=== PATIENT | female | born 1940 | race Caucasian/White ===

== ENCOUNTER 2017-10-23 20:25 | Emergency (ER) | payer MEDICARE ==
[2017-10-23 20:30] VITALS: TEMP 97.1
[2017-10-23] MEDS ORDERED: ONDANSETRON 4 MG/2 ML VIAL IVP STA (20:37)
[2017-10-23] MEDS ORDERED: LABETALOL 5 MG/ML VIAL MDV IVP STA ×2 (20:37→20:48)
[2017-10-23] MEDS ORDERED: SODIUM CHLORIDE 0.9% 1,000 ML IV STA (20:48)
[2017-10-23 21:00] VITALS: RESP 16
[2017-10-23] MEDS ORDERED: tPA (Alteplase) PER PHARMACY 1 EACH MISC MISCELLANE PRN (21:08)
--- NOTE | 2017-10-23 21:09 | CT ---
EXAMINATION TYPE: CT brain wo con for TPA DATE OF EXAM: 10/23/2017 COMPARISON: NONE INDICATION: R/O Stroke DLP: 1074.70 mGycm, Automated exposure control for dose reduction was used. CONTRAST: None CT of the brain is performed utilizing 3 mm thick sections through the posterior fossa and 3 mm thick sections through the remaining calvarium. Study is performed within 24 hours of arrival to the hosp [facility]. No abnormal hyperdensity is present to suggest an acute intracranial hemorrhage. No mass lesion is evident. No acute infarcts are evident. There is mild periventricular white matter hypodensity, likely on the basis of chronic white matter ischemic changes. Ventricles and sulci are appropriate for the patient age. Paranasal sinuses and mastoid air cells within the [id number] are clear. IMPRESSIONS: 1. Periventricular chronic appearing white matter ischemic changes. 2. No acute intracranial process radiographically apparent.
[2017-10-23] MEDS ORDERED: ALTEPLASE BOLUS 7 MG in EMPTY SYRINGE 1 SYR IV STA (21:10)
[2017-10-23] MEDS ORDERED: ALTEPLASE 63 MG in EMPTY BAG 1 BAG IV STA (21:10)
[2017-10-23 21:13] LABS: Basophils # (A) 0.1 k/uL (0-0.2); Basophils % (A) 1 %; Eosinophils # (A) 0.2 k/uL (0-0.7); Eosinophils % (A) 3 %; HCT 37.3 % (34.0-46.0); HGB 12.4 gm/dL (11.4-16.0); Lymphocytes # (A) 1.7 k/uL (1.0-4.8); Lymphocytes % (A) 21 %; MCH 29.2 pg (25.0-35.0); MCHC 33.2 g/dL (31.0-37.0); MCV 88.1 fL (80.0-100.0); Mean Platelet Volume 7.1; Monocytes # (A) 0.4 k/uL (0-1.0); Monocytes % (A) 5 %; Neutrophils # (A) 5.3 k/uL (1.3-7.7); Neutrophils % (A) 68 %; Platelet Count 264 k/uL (150-450); RBC 4.23 m/uL (3.80-5.40); WBC 7.8 k/uL (3.8-10.6)
[2017-10-23 21:16] LABS: Albumin 3.9 g/dL (3.5-5.0); Calcium 9.6 mg/dL (8.4-10.2); Potassium 5.3 mmol/L (3.5-5.1); Total Bilirubin 0.7 mg/dL (0.2-1.3); Total Protein 6.6 g/dL (6.3-8.2)
[2017-10-23 21:17] LABS: Creatine Kinase 62 U/L (30-135)
[2017-10-23 21:23] LABS: Partial Thromboplastin Time 18.4 sec (22.0-30.0)
--- NOTE | 2017-10-23 21:23 | ED ---
General Adult HPI - General Chief complaint: Altered Mental Status Stated complaint: stroke Time Seen by Provider: 10/23/17 20:39 Source: EMS, RN notes reviewed, old records reviewed Mode of arrival: EMS Limitations: altered mental status - History of Present Illness Initial comments: This is a 76-year-old female the ER for evaluation, positive history of high blood pressure high cholesterol, patient coming in with sudden onset of altered mental state. Patient was playing cards with family earlier today around 8:00. She became unresponsive not asking questions responding, noted to have right- sided weakness. Patient poor strain secondary to critical condition history obtained from patient's family, EMS. - Related Data Allergies Allergy/AdvReac Type Severity Reaction Status Date / Time No Known Allergies Allergy Verified 10/23/17 20:30 Review of Systems ROS Statement: Those systems with pertinent positive or pertinent negative responses have been documented in the HPI. ROS Other: All systems not noted in ROS Statement are negative. Past Medical History Past Medical History: Diabetes Mellitus, Hypertension History of Any Multi-Drug Resistant Organisms: None Reported Past Surgical History: No Surgical Hx Reported Past Psychological History: No Psychological Hx Reported General Exam - General Exam Comments Initial Comments: NIH 7, Right Facial Droop, Right Hemiparesis, Dec Mentation - Limitations: altered mental status General appearance: alert, in no apparent distress Head exam: Present: atraumatic, normocephalic, normal inspection Eye exam: Present: normal appearance, PERRL, EOMI. Absent: scleral icterus, conjunctival injection, periorbital swelling ENT exam: Present: normal exam, mucous membranes moist Neck exam: Present: normal inspection. Absent: tenderness, meningismus, lymphadenopathy Respiratory exam: Present: normal lung sounds bilaterally. Absent: respiratory distress, wheezes, rales, rhonchi, stridor Cardiovascular Exam: Present: regular rate, normal rhythm, normal heart sounds. Absent: systolic murmur, diastolic murmur, rubs, gallop, clicks GI/Abdominal exam: Present: soft, normal bowel sounds. Absent: distended, tenderness, guarding, rebound, rigid Extremities exam: Present: normal inspection, full ROM, normal capillary refill. Absent: tenderness, pedal edema, joint swelling, calf tenderness Back exam: Present: normal inspection Neurological exam: Present: alert, oriented X3, CN II-XII intact Psychiatric exam: Present: normal affect, normal mood Skin exam: Present: warm, dry, intact, normal color. Absent: rash Course Vital Signs 10/23/17 10/23/17 10/23/17 20:26 20:41 20:56 Temperature 97.1 F L Pulse Rate 85 90 72 Respiratory 20 18 16 Rate Blood Pressure 206/94 218/100 152/87 O2 Sat by Pulse 100 91 L 100 Oximetry 10/23/17 10/23/17 10/23/17 21:11 21:17 21:30 Temperature Pulse Rate 80 69 84 Respiratory 16 16 16 Rate Blood Pressure 172/71 163/74 167/93 O2 Sat by Pulse 86 L 96 97 Oximetry - Reevaluation(s) Reevaluation #1: 10/23/17 20:21 Code stroke page outpatient emergency room arrival Reevaluation #2: 10/23/17 21:21 Spoke with family at length regarding was incontinent TPA, decision made to go through with giving TPA medication Reevaluation #3: 10/23/17 21:21 Dr. Shelton from neural intervention is spoken with, agree with decision and plan. Reevaluation #4: 10/23/17 21:21 Blood pressure is well-controlled currently Reevaluation #5: 10/23/17 21:21 Patient's becoming more somnolent remains a positive gag reflex, pulse ox 97/98% 10/23/17 21:32 Patient currently with decerebrate posturing, secondary to respiratory effort, patient needs to be intubated Procedures - Intubation Time Out Performed: Yes Sedative: Versed Paralytic: Succinylcholine Laryngoscope: Ton ET Tube Size: 7.5 ET Tube Uncuffed: No Tube Secured Location: teeth Tube Placement Confirmation: visualized tube passing through cords, equal breath sounds bilaterally, no breath sounds over epigastrium, confirmation by capnometry Patient Tolerated Procedure: well Intubation Complications: none Medical Decision Making - Medical Decision Making 76 female the ER was significant neurological complaint symptoms, positive CVA. Patient is placed currently on life-support secondary to respiratory effort and low oxygen, patient will be transferred to [facility] for further evaluation and management by neurological neuro intervention - Lab Data Result diagrams: 10/23/17 20:59 10/23/17 20:59 Lab Results 10/23/17 10/23/17 10/23/17 Range/Units 20:59 20:59 20:59 WBC 7.8 (3.8-10.6) k/uL RBC 4.23 (3.80-5.40) m/uL Hgb 12.4 (11.4-16.0) gm/dL Hct 37.3 (34.0-46.0) % MCV 88.1 (80.0-100.0) fL MCH 29.2 (25.0-35.0) pg MCHC 33.2 (31.0-37.0) g/dL RDW 14.0 (11.5-15.5) % Plt Count 264 (150-450) k/uL Neutrophils % 68 % Lymphocytes % 21 % Monocytes % 5 % Eosinophils % 3 % Basophils % 1 % Neutrophils # 5.3 (1.3-7.7) k/uL Lymphocytes # 1.7 (1.0-4.8) k/uL Monocytes # 0.4 (0-1.0) k/uL Eosinophils # 0.2 (0-0.7) k/uL Basophils # 0.1 (0-0.2) k/uL PT (9.0-12.0) sec INR (<1.2) APTT (22.0-30.0) sec Sodium 138 (137-145) mmol/L Potassium 5.3 H (3.5-5.1) mmol/L Chloride 103 (98-107) mmol/L Carbon Dioxide 21 L (22-30) mmol/L Anion Gap 14 mmol/L BUN 30 H (7-17) mg/dL Creatinine 1.60 H (0.52-1.04) mg/dL Est GFR (CKD-EPI)AfAm 36 (>60 ml/min/1.73 sqM) Est GFR (CKD-EPI)NonAf 31 (>60 ml/min/1.73 sqM) Glucose 205 H (74-99) mg/dL Calcium 9.6 (8.4-10.2) mg/dL Total Bilirubin 0.7 (0.2-1.3) mg/dL AST 22 (14-36) U/L ALT 31 (9-52) U/L Alkaline Phosphatase 53 (38-126) U/L Total Creatine Kinase 62 (30-135) U/L CK-MB (CK-2) 1.2 (0.0-2.4) ng/mL CK-MB (CK-2) Rel Index 1.9 Troponin I <0.012 (0.000-0.034) ng/mL Total Protein 6.6 (6.3-8.2) g/dL Albumin 3.9 (3.5-5.0) g/dL 10/23/17 Range/Units 20:59 WBC (3.8-10.6) k/uL RBC (3.80-5.40) m/uL Hgb (11.4-16.0) gm/dL Hct (34.0-46.0) % MCV (80.0-100.0) fL MCH (25.0-35.0) pg MCHC (31.0-37.0) g/dL RDW (11.5-15.5) % Plt Count (150-450) k/uL Neutrophils % % Lymphocytes % % Monocytes % % Eosinophils % % Basophils % % Neutrophils # (1.3-7.7) k/uL Lymphocytes # (1.0-4.8) k/uL Monocytes # (0-1.0) k/uL Eosinophils # (0-0.7) k/uL Basophils # (0-0.2) k/uL PT 10.0 (9.0-12.0) sec INR 1.0 (<1.2) APTT 18.4 L (22.0-30.0) sec Sodium (137-145) mmol/L Potassium (3.5-5.1) mmol/L Chloride (98-107) mmol/L Carbon Dioxide (22-30) mmol/L Anion Gap mmol/L BUN (7-17) mg/dL Creatinine (0.52-1.04) mg/dL Est GFR (CKD-EPI)AfAm (>60 ml/min/1.73 sqM) Est GFR (CKD-EPI)NonAf (>60 ml/min/1.73 sqM) Glucose (74-99) mg/dL Calcium (8.4-10.2) mg/dL Total Bilirubin (0.2-1.3) mg/dL AST (14-36) U/L ALT (9-52) U/L Alkaline Phosphatase (38-126) U/L Total Creatine Kinase (30-135) U/L CK-MB (CK-2) (0.0-2.4) ng/mL CK-MB (CK-2) Rel Index Troponin I (0.000-0.034) ng/mL Total Protein (6.3-8.2) g/dL Albumin (3.5-5.0) g/dL - Radiology Data Radiology results: report reviewed (DT brain CTA had not shows no acute bleed.) , image reviewed Critical Care Time Critical Care Time: Yes Total Critical Care Time: 31 Disposition Clinical Impression: Altered mental status, CVA (cerebral vascular accident), Hypertensive emergency , Respiratory failure Disposition: OTHER INSTITUTION NOT DEFINED Condition: Critical Is patient prescribed a controlled substance at d/c from ED?: No Referrals: Mikki Hoang DO [Primary Care Provider] - 1-2 days - Out of Hospital Transfer - Req. Specs Out of Hospital Transfer - Requested Specifics: Other Emergency Center ([facility])
[2017-10-23 21:31] LABS: Creatine Kinase MB 1.2 ng/mL (0.0-2.4); Troponin I <0.012 ng/mL (0.000-0.034)
[2017-10-23] MEDS ORDERED: levETIRAcetam IV 1,000 MG in SALINE 1 100ML.BAG IVPB STA (21:31)
[2017-10-23] MEDS ORDERED: PROPOFOL 1,000 MG in EMPTY BAG 1 BAG IV ONE (21:31)
--- NOTE | 2017-10-23 21:31 | CT ---
EXAMINATION TYPE: CT angio head neck DATE OF EXAM: 10/23/2017 HISTORY: R/O Stroke COMPARISON: NONE CT DLP: 314.3 mGycm. Automated Exposure Control for Dose Reduction was Utilized. TECHNIQUE: CTA scan of the neck is performed with IV Contrast, patient injected with 70 mL of Isovue 370, axial images are obtained, coronal and sagittal reformatted images are reviewed. Three-D recons tructed images are created on an independent workstation and reviewed. FINDINGS: Carotid/Vascular Structures: Source images for the neck are unavailable. The common carotid arteries bifurcate normally into internal and external carotid arteries. Vertebral arteries excluded from the [id number] on the reconstructed images. Distal vertebral arteries appear to be codominant. There i s a three-vessel arch. [place]: The right A1 segment is slightly hypoplastic. The anterior communicating artery is patent. Internal carotid arteries bifurcate normally into A1 and M1 segments. Middle cerebral artery branches appear normal. A2 segments are unremarkable. Posterior cerebral vasculature is unremarkable. IMPRESSION: 1. No significant flow-limiting stenosis. 2. [place] appears within normal limits.
[2017-10-23] MEDS ORDERED: MIDAZOLAM 1 MG/ML 5 ML VIAL IV STA (21:34)
[2017-10-23] MEDS ORDERED: SUCCINYLCHOLINE CHLORIDE VIAL 200 MG/10 ML VIAL IV STA (21:34)
--- NOTE | 2017-10-23 21:52 | XR ---
EXAMINATION TYPE: XR chest 1V portable DATE OF EXAM: 10/23/2017 COMPARISON: NONE INDICATION: Altered mental status TECHNIQUE: Single frontal view of the chest is obtained. FINDINGS: The heart size is normal. The pulmonary vasculature is prominent. There is mild diffuse increased lung markings. Correlate for pulmonary edema Endotracheal tube is been placed with the tip above the ronnie. Nasogastric tube is been placed with the tip within the midabdomen. IMPRESSION: 1. Clinical correlation recommended for developing pulmonary edema. 2. Lines and catheters discussed above.
[2017-10-23 22:00] LABS: ABG Base Excess -6.2 mmol/L; ABG HCO3 20 mmol/L (21-25); ABG PCO2 40 mmHg (35-45); ABG PO2 130 mmHg (83-108); ABG TCO2 21 mmol/L (19-24)
[2017-10-23 22:22] VITALS: BP 160/81; PULSE 82
[2017-10-24 07:58] LABS: Glucose,Whole Blood 156 mg/dL (75-99)
== END 2017-10-23 22:59 | disposition other institution (70) ==
LOC: EDBD → EC 20:25
DX: I63.9 Cerebral infarction, unspecified (principal); J96.90 Respiratory failure, unspecified, unspecified whether with hypoxia or hypercapnia; I10 Essential (primary) hypertension; R41.82 Altered mental status, unspecified
CPT/HCPCS: 99291 ×2; 31500 ×2; 37195 ×2; 96365 ×2; 96375 ×3; 96361 ×2; 36415; 36600; 94002; 93005; 80053; 82550; 82553; 82805; 84484; 85025; 85610; 85730; 71045; 70496; 70450; 70498; J2997; J0330; J2405; J2250; J2704; J1953; Q9967